=== PATIENT | female | born 1985 | race Caucasian/White ===

== ENCOUNTER 2020-12-20 05:38 | Day surgery (SDC) | payer MEDICAID ==
[2020-12-15 16:16] LABS: BASOPHILS % (AUTO) 0.7 % (0-1); EOSINOPHILS # (AUTO) 0.2 X10'3 (0-0.9); EOSINOPHILS % (AUTO) 2.5 % (0-6); LYMPHOCYTES # (AUTO) 2.3 X10'3 (1.1-4.8); LYMPHOCYTES % (AUTO) 32.1 % (21-51); MEAN CORPUSCULAR HEMOGLOBIN 29.2 PG (27.0-31.0); MEAN CORPUSCULAR HGB CONC 33.9 g/dL (33.0-36.5); MEAN CORPUSCULAR VOLUME 85.9 FL (78-98); MEAN PLATELET VOLUME 7.3 FL (7.4-10.4); MONOCYTES # (AUTO) 0.8 X10'3 (0-0.9); NEUTROPHILS # (AUTO) 3.9 X10'3 (1.8-7.7); NEUTROPHILS % (AUTO) 53.7 % (42-75); PRE OP HEMATOCRIT 40.8 % (35.0-45.0); PRE OP HEMOGLOBIN 13.8 g/dL (12.0-16.0); PRE OP PLATELET COUNT 231 X10'3 (140-440); RED BLOOD COUNT 4.74 X10'6 (4.20-5.60)
[2020-12-15 16:21] LABS: ALBUMIN 3.9 G/DL (3.4-5.0); ALBUMIN/GLOBULIN RATIO 1.1 (1.1-1.5); ALKALINE PHOSPHATASE 48 IU/L (46-116); BLOOD UREA NITROGEN 11 MG/DL (7-18); BUN/CREATININE RATIO 14.3 (6.6-38.0); CALCIUM 8.6 MG/DL (8.5-10.1); CHLORIDE 108 MMOL/L (99-107); CREATININE 0.77 MG/DL (0.40-0.90); PRE OP ANION GAP 8 (8-16); PRE OP AST 38 U/L (10-37); PRE OP BILIRUB, TOTAL 0.5 MG/DL (0.0-1.0); PRE OP GLUCOSE 87 MG/DL (70-104); PRE OP POTASSIUM 3.5 MMOL/L (3.4-5.1); PRE OP SODIUM 144 MMOL/L (135-145); TOTAL CARBON DIOXIDE 28.5 MMOL/L (24-32); TOTAL PROTEIN 7.4 G/DL (6.4-8.2); eGFR 85 ML/MIN
[2020-12-15 16:26] LABS: PRE OP ALT 92 U/L (30-65)
[2020-12-15 16:51] LABS: HCG SERUM QL NEGATIVE
[~2020-12-20] VITALS: Ht 167.6 cm; Wt 110.2 kg
[~2020-12-20 05:38] MED LIST: ALBU8HFA PO; BIOT10004 PO; CETI-90 PO; ESCI10TA66 PO; ESCI5TAB25 PO; GABA600T13 PO; LISI40TA4 PO; LORA-268 PO; MELA5TAB12 PO; PRAZ2CAP2 PO; SLEEP AID PO; ceFAZolin 2gm in dextrose, iso 50 ML IV ONE; famotidine 20mg tablet PO ONE; ringers solution, lacted 1,000 ML IV SCH; tranexamic acid 650mg tablet PO ONE; vancomycin 1,500 MG in NS 300ml IV soln IV ONE
[2020-12-20 05:40] VITALS: BP 147/100
[2020-12-20] MEDS ORDERED: LIDOcaine 1% (10mg/ml) 2ml vial ONE (05:59)
[2020-12-20] MEDS ORDERED: ketorolac trometh. 30mg/ml inj. ONE (06:57)
[2020-12-20] MEDS ORDERED: LIDOcaine 1% 30ml preserv. free vial ONE (06:58)
[2020-12-20] MEDS ORDERED: BUPIVAcaine 0.5% inj/PF 60 ML ONE (06:58)
[2020-12-20] MEDS ORDERED: LIDOcaine 1% w/epiNEPHrine 1:200,000 30ml vial ONE (06:58)
[2020-12-20] MEDS ORDERED: sevoflurane 250ml liquid IH ONE (07:00)
[2020-12-20] MEDS ORDERED: midazolam 2 mg/2 ml injection ONE (07:03)
[2020-12-20] MEDS ORDERED: propofol inj 20 ML IV ONE (07:03)
[2020-12-20] MEDS ORDERED: LIDOcaine 2% (20mg/ml) 5ml vial ONE (07:03)
[2020-12-20] MEDS ORDERED: fentaNYL/PF 50MCG/1 ML 2ML syringe ONE (07:03)
[2020-12-20] MEDS ORDERED: dexamethasone sod phosphate 4mg/ml inj. ONE (07:36)
[2020-12-20 07:50] VITALS: BP 124/83
[2020-12-20] MEDS ORDERED: ketorolac trometh. 30mg/ml inj. IM ONE (07:50)
[2020-12-20] MEDS ORDERED: BUPIVAcaine 0.5% inj/PF 30 ml vial IJ ONE (07:50)
--- NOTE | 2020-12-20 07:50 | NUR ---
Received from OR via BED, accompanied by Anesthesiologist DR SHAFFER and report given by Anesthesiolgist. PATIENT A&OX4, DENIES PAIN, V/S WNL, NEUROVASCULAR CHECKS INTACT, 20G PIV LUE, SCD ON, DRESSING TO LEFT KNEE CDI ELEVATED WITH ICEBAG APPLIED.
[2020-12-20] MEDS ORDERED: LIDOcaine 1% w/epiNEPHrine 1:200,000 30ml vial IJ ONE (07:51)
[2020-12-20] MEDS ORDERED: ringers solution, lacted 1,000 ML IV SCH (07:55)
[2020-12-20] MEDS ORDERED: morphine 2 MG/ML inj. syringe IV PRN (07:55)
[2020-12-20] MEDS ORDERED: meperidine/PF 25mg/ml syringe IV PRN ×3 (07:55)
[2020-12-20] MEDS ORDERED: ondansetron/PF 4mg/2ml inj IV PRN (07:55)
[2020-12-20] MEDS ORDERED: HYDROcodone/acetaminophen 10/325mg tab PO PRN (07:55)
[2020-12-20] MEDS ORDERED: proCHLORperazine 10 MG/2 ml inj IV PRN (07:55)
[2020-12-20] MEDS ORDERED: morphine 4 MG/ML inj SYRINge IV PRN (07:55)
[2020-12-20 08:00] VITALS: BP 143/87
[2020-12-20 08:10] VITALS: BP 138/81
[2020-12-20 08:20] VITALS: BP 133/77
[2020-12-20 08:30] VITALS: BP 136/74
--- NOTE | 2020-12-20 08:30 | NUR ---
PATIENT A&OX4, DENIES PAIN, V/S WNL, NEUROVASCULAR CHECKS INTACT, 20G PIV LUE DC, SCD OFF, DRESSING TO LEFT KNEE CDI ELEVATED WITH ICEBAG APPLIED. I HAVE REVIEWED D/C INSTRUCTIONS WITH PATIENT AND FAMILY AND THEY HAVE VERBALIZED UNDERSTANDING. PATIENT D/C HOME WITH ALL BELONGINGS AND FAMILY GAVE TRANSPORT HOME.PATIENT OFFERED MASK BUT REFUSED TO WEAR IT AT UPON D/C. PATIENT HAS CRUTCHES IN CAR.
[2020-12-20] MEDS ORDERED: ondansetron/PF 4mg/2ml inj ONE (08:34)
== END 2020-12-20 08:30 | disposition home or self-care (01) ==
LOC: PAS 05:38
PROVIDERS: ATTEND Orthopaedic Surgery
DX: M17.12 Unilateral primary osteoarthritis, left knee (principal); M94.262 Chondromalacia, left knee; E66.01 Morbid (severe) obesity due to excess calories; Z68.38 Body mass index [BMI] 38.0-38.9, adult; J45.909 Unspecified asthma, uncomplicated; G43.909 Migraine, unspecified, not intractable, without status migrainosus; F41.9 Anxiety disorder, unspecified; F32.9 Major depressive disorder, single episode, unspecified; F43.10 Post-traumatic stress disorder, unspecified; I10 Essential (primary) hypertension; Z20.822 Contact with and (suspected) exposure to COVID-19; Z88.1 Allergy status to other antibiotic agents; Z98.890 Other specified postprocedural states; Z79.899 Other long term (current) drug therapy; Z72.89 Other problems related to lifestyle
CPT/HCPCS: 29877; 36415; 80053; 82948; 84703; 85025; 87635; 93005; J1100; J1885; J2001; J2250; J2405; J2704; J3010; J3370; J7040; J7120; A4215; A4618; A6449; A7000